=== PATIENT | female | born 1955 | race Caucasian/White ===

== ENCOUNTER 2016-11-24 11:45 | Emergency (ER) | payer BC ==
[2016-11-24 11:59] VITALS: BP 172/89
--- NOTE | 2016-11-24 12:40 | UC ---
Throat Pain/Nasal Michael HPI - HPI Summary HPI Summary: This is a 61 yo female with a h/o sinus congestion/pain x 4-5 days. Pain is not focal. No measured fevers or chills. Some cough. Symptoms started as a ST. Denies sick contacts. She has been using coricidin at home once daily and consuming hot liquids. No associated CP, abd pain, n/v/d. No rash - History of Current Complaint Chief Complaint: UCRespiratory Stated Complaint: SINUS COMPLAINT - Allergies/Home Medications Allergies/Adverse Reactions: Allergies Allergy/AdvReac Type Severity Reaction Status Date / Time Sulfa Drugs Allergy Hives Verified 11/24/16 11:58 PMH/Surg Hx/FS Hx/Imm Hx Endocrine History Of: Denies: Diabetes, Thyroid Disease Cardiovascular History Of: Reports: Hypertension Denies: Cardiac Disorders Respiratory History Of: Denies: COPD, Asthma GI/ History Of: Denies: Ulcer Cancer History Of: Denies: Breast Cancer - Surgical History Surgical History: Yes Surgery Procedure, Year, and Place: PARTIAL hysterectomy; fibroid tumor L breast 1990 - Family History Known Family History: Positive: Hypertension - Social History Alcohol Use: Rare Substance Use Type: None Smoking Status (MU): Never Smoked Tobacco - Immunization History Most Recent Influenza Vaccination: FALL 2013 Most Recent Tetanus Shot: UNSURE Review of Systems Constitutional: Negative Skin: Negative Eyes: Negative ENT: Sore Throat, Nasal Discharge Respiratory: Cough Cardiovascular: Negative Gastrointestinal: Negative Genitourinary: Negative Motor: Negative Neurovascular: Negative Musculoskeletal: Negative Neurological: Negative Psychological: Negative All Other Systems Reviewed And Are Negative: Yes Physical Exam Triage Information Reviewed: Yes Appearance: Well-Appearing Vital Signs: Initial Vital Signs Temp 97.6 F 11/24/16 11:56 Pulse 78 11/24/16 11:56 Resp 20 11/24/16 11:56 Pulse Ox 96 11/24/16 11:56 Vital Signs Reviewed: Yes ENT: Positive: Pharynx normal, Nasal congestion, TMs normal, Other: - mild sinus TTP diffusely Neck exam: Normal Neck: Positive: Supple, Nontender, No Lymphadenopathy Respiratory Exam: Normal Respiratory: Positive: Lungs clear, Normal breath sounds Cardiovascular: Positive: RRR, No Murmur Throat Pain/Nasal Course/Dx - Course Course Of Treatment: Patient's exam was largely benign and history was consistent with a viral process. Recommended continued use of decongestants. Recommended avoiding pseudoephedrine and phenylephrine because of her HTN. - Differential Dx/Diagnosis Differential Diagnosis/HQI/PQRI: Laryngitis, Pharyngitis, Tonsillitis, URI Provider Diagnoses: 1. Viral sinusitis/URI Discharge - Discharge Plan Condition: Stable Disposition: HOME Patient Education Materials: Rhinosinusitis (ED) Referrals: Andrew LLOYD,Carolann [Primary Care Provider] - If Needed Additional Instructions: Activity: As tolerated Instructions: 1. It appears that you have a viral infection. 2. Continue the decongestant that you have been using 3. Use Afrin nasal spray for additional symptomatic relief 4. You can use 25-50mg Benadryl (diphenhydramine) at night 5. Return if symptoms do not improve in the next 5-7 days
== END 2016-11-24 12:47 | disposition home or self-care (01) ==
LOC: UCEAST 11:45
DX: J32.8 Other chronic sinusitis (principal); B97.89 Other viral agents as the cause of diseases classified elsewhere; J06.9 Acute upper respiratory infection, unspecified; I10 Essential (primary) hypertension; Z88.2 Allergy status to sulfonamides
CPT/HCPCS: 99211; G0463

== ENCOUNTER 2017-02-21 08:32 | Emergency (ER) | payer BC ==
[2017-02-21 08:51] VITALS: BP 147/83
--- NOTE | 2017-02-21 09:43 | UC ---
Misty Javier Salem, scribed for Jeanie Rdz MD on 02/21/17 at 0931 . Respiratory Complaint HPI - HPI Summary HPI Summary: Patient is a 62 y/o female who presents to the with sinus pain since 4 days ago. She is concerned she has a sinus infection. She reports pressure and congestion in her chest, a headache, ear pain, general malaise, chills, and the sensation that her eyes are bugging. Pt denies fever or sore throat, but reports pain in teeth and a cough productive for yellow/green sputum. She has been taking Emergen-C, ASA, and Zyrtec for sx. She denies taking ASA today. She states that she has had sinus infections in the past with the most recent one being one year ago and this feels similar. . She report she is on medication for HTN and is allergic to Sulfa drugs. Pt denies fevers, rash. No sick contacts Patients medication reviewed this visit. - History of Current Complaint Chief Complaint: UCRespiratory Stated Complaint: SINUS ISSUE CONGESTION Time Seen by Provider: 02/21/17 09:09 Hx Obtained From: Patient Onset/Duration: Gradual Onset, Lasting Days, Still Present Timing: Constant Severity Initially: Moderate Severity Currently: Moderate Character: Sputum Description: - Yellow/green. Aggravating Factors: Nothing Alleviating Factors: Nothing Associated Signs And Symptoms: Positive: Chills. Negative: Fever - Allergies/Home Medications Allergies/Adverse Reactions: Allergies Allergy/AdvReac Type Severity Reaction Status Date / Time Sulfa Drugs Allergy Hives Verified 02/21/17 08:51 PMH/Surg Hx/FS Hx/Imm Hx Endocrine History Of: Denies: Diabetes, Thyroid Disease Cardiovascular History Of: Reports: Hypertension Denies: Cardiac Disorders Respiratory History Of: Denies: COPD, Asthma GI/ History Of: Denies: Ulcer Cancer History Of: Denies: Breast Cancer - Surgical History Surgical History: Yes Surgery Procedure, Year, and Place: PARTIAL hysterectomy; fibroid tumor L breast 1990 - Family History Known Family History: Positive: Hypertension - Social History Alcohol Use: Rare Substance Use Type: None Smoking Status (MU): Never Smoked Tobacco - Immunization History Most Recent Influenza Vaccination: FALL 2013 Most Recent Tetanus Shot: UNSURE Review of Systems Constitutional: Chills, Other - No fever. General malaise. Skin: Negative Eyes: Negative ENT: Other - left Ear pain. Pain in teeth. Bugging eyes. Respiratory: Cough, Other - Congestion and pressure in chest. Cardiovascular: Negative Gastrointestinal: Negative Genitourinary: Negative Motor: Negative Neurovascular: Negative Musculoskeletal: Negative Neurological: Headache - frontal, maxillary Psychological: Negative All Other Systems Reviewed And Are Negative: Yes Physical Exam Triage Information Reviewed: Yes Appearance: Well-Appearing, Pain Distress - head congestion Vital Signs: Initial Vital Signs Temp 98 F 02/21/17 08:47 Pulse 75 02/21/17 08:47 Resp 18 02/21/17 08:47 BP 147/83 02/21/17 08:47 Pulse Ox 97 02/21/17 08:47 Vital Signs Reviewed: Yes Eye Exam: Normal Eyes: Positive: Conjunctiva Clear ENT Exam: Normal ENT: Positive: Hearing grossly normal, Pharynx normal - + PND - no exudate, erythema, Nasal congestion, Nasal drainage - turbinates inflammed, TMs normal - scant fluid left TM - no erythema, retraction Neck exam: Normal Neck: Positive: Supple, Nontender, No Lymphadenopathy Respiratory Exam: Normal Respiratory: Positive: Chest non-tender, Normal breath sounds. Negative: Wheezing Cardiovascular Exam: Normal Cardiovascular: Positive: RRR, No Murmur, Pulses Normal Abdominal Exam: Normal Abdomen Description: Positive: Nontender, No Organomegaly, Soft Bowel Sounds: Positive: Present Musculoskeletal Exam: Normal Musculoskeletal: Positive: Strength Intact Psychological Exam: Normal Skin Exam: Normal UC Diagnostic Evaluation - Laboratory O2 Sat by Pulse Oximetry: 97 Respiratory Course/Dx - Course Course Of Treatment: Blood pressure noted and patient informed to follow up with PCP. Pt with sinus congestion, fluid in left ear, PND. Pt with cough with yellow sputum. Will start Z pack, flonase. hydrate. d/w pt secretion hygeine. APAP/Motrin prn. Pt comfortable and in agreement with plan - Differential Dx/Diagnosis Provider Diagnoses: sinusitis. URI Discharge - Discharge Plan Condition: Stable Disposition: HOME Prescriptions: Azithromycin TAB* [Zithromax TAB (Z-SHERYL) 250 mg #6 tabs] 2 tab PO .TODAY, THEN 1 DAILY #1 sheryl Mometasone NASAL (NF) [Nasonex (NF)] 1 spray .SEE ORDER DAILY #1 nasal.spr Patient Education Materials: Upper Respiratory Infection (ED), Acute Bronchitis (ED) Additional Instructions: - STay well hydrated. Drink plenty of non-alcoholic, non-caffinated beverages - take antibiotics a day as prescribed - use nasal spray as instructed - After you have been on antibiotics for 2 days - change your toothbrush and your pillowcase. These infections are spread by secretions - do NOT share eating or drinking utensils - clean items you share with other people such as iphone, computer mouse, TV remote, etc. - Alternate ibuprofen (Advil, motrin) 600mg and tylenol eveyry 3 hours for pain or fever. Do NOT take ibuprofen if you are taking Naprosyn - Call your doctor on Thursday to schedule a follow-up appointment. Call your doctor or return with questions or concerns The documentation as recorded by the Misty louis Salem accurately reflects the service I personally performed and the decisions made by me, Jeanie Rdz MD.
== END 2017-02-21 09:47 | disposition home or self-care (01) ==
LOC: UCEAST 08:32
DX: J32.9 Chronic sinusitis, unspecified (principal); J06.9 Acute upper respiratory infection, unspecified; I10 Essential (primary) hypertension; Z88.2 Allergy status to sulfonamides
CPT/HCPCS: 99212; G0463

== ENCOUNTER 2019-02-05 10:48 | Emergency (ER) | payer MEDICARE, BC ==
--- NOTE | 2019-02-05 11:26 | UC ---
Respiratory Complaint HPI - HPI Summary HPI Summary: Pt with progressive congestion, wheeze, prductive cough. Pt recently completed 10 days course of Amox fir sinusitis, chest cold. Pt staes felt better intitially, but worse towards the end of the course and since finished. No fever + fatigue. + green sputum. no rash. + sinus congetion. no ear pain. Pt not using albuterol or prednisone + OTC decongestant no chest pain, nausea, vomiting, diarrhea. + sick contact medications reviewed - History of Current Complaint Chief Complaint: UCRespiratory Stated Complaint: RESPIRATORY ISSUSES Time Seen by Provider: 02/05/19 11:18 Hx Obtained From: Patient, Medical Records ?: No Onset/Duration: Lasting Days Pain Intensity: 7 - Allergies/Home Medications Allergies/Adverse Reactions: Allergies Allergy/AdvReac Type Severity Reaction Status Date / Time MS Sulfa Drugs [Sulfa Drugs] Allergy Hives Verified 02/21/17 08:51 Sulfa (Sulfonamide Allergy Hives Verified 02/05/19 11:09 Antibiotics) Home Medications: Home Medications Losartan/HCTZ 100/25 (NF) [Hyzaar 100/25 (NF)] 1 tab PO DAILY 02/05/19 [History Confirmed 02/05/19] PMH/Surg Hx/FS Hx/Imm Hx Previously Healthy: Yes - Surgical History Surgical History: Yes Surgery Procedure, Year, and Place: PARTIAL hysterectomy; fibroid tumor L breast 1990 - Family History Known Family History: Positive: Hypertension, Non-Contributory - Social History Occupation: Employed Full-time Alcohol Use: Rare Substance Use Type: None Smoking Status (MU): Never Smoked Tobacco - Immunization History Most Recent Influenza Vaccination: FALL 2013 Most Recent Tetanus Shot: UNSURE Review of Systems All Other Systems Reviewed And Are Negative: Yes Constitutional: Positive: Fatigue ENT: Positive: Sore Throat, Nasal Discharge, Sinus Congestion Respiratory: Positive: Cough Physical Exam - Summary Physical Exam Summary: Vital Signs Reviewed: Yes A+Ox3, no distress Eyes: Conjunctiva Clear, KAYLYN. EOM intact and full ENT: Hearing grossly normal TM x 2 turbinates inflammed and boggy, + PND, clear , mmoist, uvula midline, no exudate, no erythema Neck: Positive: Supple Respiratory: Positive: coarse cough, + exp wheeze rhonci right no accessory muscle abd soft + BS nt/nd no guarding, no distension Musculoskeletal Exam: JOAQUIN x 4 without difficulty Strength Intact, ROM Intact Neurological: Positive: Alert, + sensation throughout Psychological: Positive: Normal Response To Family Skin: Positive: no rash, no ecchymosis Triage Information Reviewed: Yes Vital Signs: Initial Vital Signs Temp 97.8 F 02/05/19 11:05 Pulse 77 02/05/19 11:05 Resp 16 02/05/19 11:05 BP 00/00 02/05/19 11:05 Pulse Ox 98 02/05/19 11:05 Diagnostics - Radiology No standard instances Radiology Interpretation Completed By: Radiologist - no acute process Re-Evaluation - Re-Evaluation First Eval Change: Improved Comment: markedly improved following neb. wheezing improved. reports feeling better, breathing easiery. will rx abx. probiotic. albuterol. prednisone. secertion precaution. return precautions Respiratory Course/Dx - Course Course Of Treatment: Pt with recent tx with amox for head and chest congestion. states was improving , but now bad again. Pt with scattered wheeze adn rhonci right side + coarse cough wit green phlegm will give duoneb, cxr close reassessment Pt's BP elevated- h/o same - recommend f/u with pcp, avoid decongestants - Differential Dx/Diagnosis Provider Diagnosis: Acute bronchitis Discharge - Sign-Out/Discharge Documenting (check all that apply): Patient Departure All imaging exams completed and their final reports reviewed: Yes - Discharge Plan Condition: Stable Disposition: HOME Prescriptions: Albuterol HFA INHALER* [Ventolin HFA Inhaler*] 2 puff INH Q4H PRN #1 mdi PRN Reason: wheeze DOXYcycline CAP(*) [DOXYcycline 100MG CAP(*)] 100 mg PO BID #20 cap Inhaler, Assist Devices [Aerochamber Mv] 1 each PO Q4HR #1 spacer predniSONE TAB* [Deltasone TAB*] 50 mg PO DAILY #5 tab Patient Education Materials: Acute Bronchitis (ED) Referrals: Carolann Morales MD [Primary Care Provider] - Additional Instructions: -Take antibiotics exactly as prescribed until gone - it is recommended you at yogurt and take probiotics while taking this medication -Use your albuterol puffer - 2 puffs every 4 hours for the next 2 days - then as needed -Stay well hydrated - avoid excess caffeine and all alcohol - eat regular, healthy meals - humidify the air in the room where you sleep - boil water, run a hot steam shower, vaporizer, cups of water by heat register - okay to take over the counter decongestant and cough medicatio - Take prednisone as prescribed - These infections are spread by secretions - do NOT share eating or drinking utensils - clean items you share with other people such as cell phones, computer mouse, TV remote, computer tablets,etc.. Once you have been antibiotics for 2 days, change your toothbrush and your pillowcase. -Contact your doctor to arrange a follow-up appointment this week. Call your doctor, return here or go to the emergency department with any questions or concerns - Billing Disposition and Condition Condition: STABLE Disposition: Home
[2019-02-05] MEDS ORDERED: Albuterol/Ipratropium NEB.SOL* Albuterol 2.5 MG/Ipratropium 0.5 MG 3 ML INH ONE (11:34)
[2019-02-05 12:37] VITALS: BP 168/90
== END 2019-02-05 12:32 | disposition home or self-care (01) ==
LOC: UCEAST 10:48
DX: J20.9 Acute bronchitis, unspecified (principal); Z88.2 Allergy status to sulfonamides
CPT/HCPCS: 71046; 99212; A9270-GY; G0463